=== PATIENT | female | born 1985 | race Caucasian/White ===

== ENCOUNTER 2018-11-25 08:17 | Day surgery (SDC) | payer MEDICAID ==
[~2018-11-25] VITALS: Ht 154.9 cm; Wt 53.5 kg
[2018-11-25 08:57] LABS: CLARITY URINE CLOUDY (CLEAR); COLOR URINE YELLOW (YELLOW); KETONES URINE NEGATIVE (NEGATIVE); LEUKOCYTE ESTERASE URINE NEGATIVE (NEGATIVE); NITRITE URINE NEGATIVE (NEGATIVE); OCCULT BLOOD URINE 3+ (NEGATIVE); PROTEIN URINE NEGATIVE (NEGATIVE); SPECIFIC GRAVITY URINE 1.026 (1.005-1.030); UROBILINOGEN URINE 0.2 E.U./dL (0.2-1.0)
[2018-11-25] MEDS ORDERED: LACTATED RINGERS 1,000 ML IV SCH (09:00)
[2018-11-25 09:13] LABS: UCG SCREEN NEGATIVE
[2018-11-25] MEDS ORDERED: SKIN ADHESIVE 0.7 GM EA TOP ONE (10:15)
[2018-11-25] MEDS ORDERED: BUPIVACAINE HCL 0.5% (5MG/ML) 50ML ONE (10:15)
[2018-11-25] MEDS ORDERED: FENTANYL CITRATE/PF 50MCG/ML 2ML VIAL ONE ×3 (10:29→11:19)
[2018-11-25] MEDS ORDERED: PROPOFOL 200MG/20ML VIAL IV ONE (10:29)
[2018-11-25] MEDS ORDERED: NEOSTIGMINE METHYLSULFATE 1MG/ML 10 ML VIAL ONE (10:29)
[2018-11-25] MEDS ORDERED: ROCURONIUM BROMIDE 10MG/ML VIAL 5ML IV ONE (10:29)
[2018-11-25] MEDS ORDERED: GLYCOPYRROLATE 0.2 MG/ML 2ML VIAL ONE (10:29)
[2018-11-25] MEDS ORDERED: MIDAZOLAM HCL 2 MG/2 ML VIAL ONE (10:29)
[2018-11-25] MEDS ORDERED: METOCLOPRAMIDE HCL 10MG/2ML VIAL ONE (10:30)
[2018-11-25] MEDS ORDERED: CEFAZOLIN SODIUM 1000MG/VIAL ONE (10:30)
[2018-11-25] MEDS ORDERED: ONDANSETRON HCL 4MG/2ML INJ ONE (10:30)
[2018-11-25] MEDS ORDERED: SUCCINYLCHOLINE CHLORIDE 200MG/10ML IV ONE (10:30)
[2018-11-25] MEDS ORDERED: SODIUM CHLORIDE 0.9% 10ML VIAL ONE (10:30)
[2018-11-25] MEDS ORDERED: DEXAMETHASONE 4MG/ML 1ML VIAL ONE (10:30)
[2018-11-25] MEDS ORDERED: ONDANSETRON HCL 4MG/2ML INJ IV PRN (12:00)
[2018-11-25] MEDS ORDERED: HYDROMORPHONE HCL/PF 2MG/ML CPJ IV PRN (12:00)
[2018-11-25] MEDS ORDERED: MEPERIDINE HCL/PF 25MG/ML CPJ IV PRN ×2 (12:00)
[2018-11-25] MEDS ORDERED: MORPHINE SULFATE 2 MG/ML CPJ (NOT FOR IM USE) IV PRN (12:00)
[2018-11-25] MEDS ORDERED: MORPHINE SULFATE 4 MG/ML CPJ (NOT FOR IM USE) IV PRN (13:00)
[2018-11-25] MEDS ORDERED: SODIUM CHLORIDE 0.9% 1,000 ML IV SCH (13:00)
[2018-11-25 13:20] VITALS: BP 125/82
== END 2018-11-25 15:00 | disposition home or self-care (01) ==
LOC: OR 08:17
PROVIDERS: ATTEND Surgery
DX: K80.10 Calculus of gallbladder with chronic cholecystitis without obstruction (principal); K21.9 Gastro-esophageal reflux disease without esophagitis
CPT/HCPCS: 47562; 81003; 81025; 88304; G0168; J0330; J0690; J1100; J2175; J2250; J2405; J2704; J2710; J2765; J3010; J3490; J7030